=== PATIENT | male | born 1960 | race Caucasian/White ===

== ENCOUNTER 2016-10-22 18:20 | Emergency (ER) | payer OTHER ==
[~2016-10-22] VITALS: Ht 172.7 cm; Wt 73.5 kg
[2016-10-22 19:52] LABS: URINE BILIRUBIN NEGATIVE (Negative); URINE BLOOD 1+ (Negative); URINE COLOR YELLOW; URINE GLUCOSE-RANDOM* NEGATIVE (Negative); URINE KETONES NEGATIVE (Negative); URINE NITRITE NEGATIVE (Negative); URINE PROTEIN (DIPSTICK) NEGATIVE (Negative); URINE SPECIFIC GRAVITY <= 1.005 (1.003-1.035); URINE UROBILINOGEN 0.2 E.U./dl (0.2-1.0)
[2016-10-22 20:07] LABS: SQUAMOUS 0-3 Few /LPF (0-3)
[2016-10-22 20:08] LABS: BACTERIA 1-9 Few /HPF (None Seen); CASTS None Seen /LPF (None Seen); CRYSTALS None Seen /LPF (None Seen); URINE RBC 0-2 Rare /HPF (0-2); URINE WBC 6-15 Few /HPF (0-5)
[2016-10-22] MEDS ORDERED: CIPROFLOXACIN500 M1 PO (20:12)
[2016-10-22 20:16] VITALS: BP 120/72
== END 2016-10-22 20:25 | disposition home or self-care (01) ==
LOC: ER 18:20
PROVIDERS: Emergency Medicine
DX: N39.0 Urinary tract infection, site not specified (principal); E11.9 Type 2 diabetes mellitus without complications

== ENCOUNTER 2016-10-25 18:59 | Emergency (ER) | payer OTHER ==
[~2016-10-25] VITALS: Ht 172.7 cm; Wt 79.4 kg
[~2016-10-25 18:59] MED LIST: CIPROFLOXACIN500 M1 PO
[2016-10-25 19:18] VITALS: BP 122/71
== END 2016-10-25 19:28 | disposition home or self-care (01) ==
LOC: ER 18:59
DX: Z46.6 Encounter for fitting and adjustment of urinary device (principal); E11.9 Type 2 diabetes mellitus without complications; F10.99 Alcohol use, unspecified with unspecified alcohol-induced disorder